=== PATIENT | female | born 1975 | race Caucasian/White ===

== ENCOUNTER 2017-11-08 11:11 | Outpatient (CLI) | payer BC | END 2017-11-08 11:12 | disposition home or self-care (01) | LOC: BICMAMMO 11:11 | PROVIDERS: ATTEND Obstetrics & Gynecology | DX: Z12.31 Encounter for screening mammogram for malignant neoplasm of breast (principal); Z80.3 Family history of malignant neoplasm of breast | CPT/HCPCS: 77063; 77067 ==

== ENCOUNTER 2018-02-28 07:42 | Outpatient (CLI) | payer BC ==
--- NOTE | 2018-02-28 09:48 | CT ---
CT OF THE ABDOMEN AND PELVIS WITH AND WITHOUT IV CONTRAST: INDICATION: History of microhematuria and left-sided flank pain with postsurgical change of prior exploratory lap arotomy x 5 and cholecystectomy. COMPARISON: None. FINDINGS: The lung bases are clear. The gallbladder is surgically absent. No focal hepatic lesion is demonstrated. The spleen, pancreas , and adrenal glands are normal-appearing. There are small hypodensities involving the kidneys consi stent with tiny subcentimeter cysts. No solid renal lesion is evident. No gross enhancing or obstru cting urothelial lesion is demonstrated. There is a tiny nonobstructing calculus within the right mi d kidney measuring 2 mm. No left-sided renal calculus is evident. No ureteral calculus is demonstra yvrose. No bladder stone is present. No pathologically enlarged lymph nodes are evident. No free fluid is demonstrated. There is a normal retrocecal appendix. There is a lobulated contour to the right margin of the uterine body with a nodular bulge seen on fernanda ge 76 of series 3 measuring 2.2 cm most consistent with a fundal fibroid. No free fluid is evident. There is a mild amount of retained stool within the colon. No pathologically enlarged lymph nodes a re evident within the pelvis. There is a small bone island within the left pubic body. No suspiciou s osteolytic or osteoblastic lesion is identified. IMPRESSION: 1. Bilateral renal cysts. 2. Right nephrolithiasis. 3. No gross urothelial lesion demonstrated. 4. Cholecystectomy. 5. Fibroid uterus. 6. Other findings as above. POS: [facility]
== END 2018-02-28 07:43 | disposition home or self-care (01) ==
LOC: CT 07:42
PROVIDERS: ATTEND Family Medicine
DX: R31.9 Hematuria, unspecified (principal); R10.9 Unspecified abdominal pain; N28.1 Cyst of kidney, acquired; N20.0 Calculus of kidney; D25.9 Leiomyoma of uterus, unspecified; R19.5 Other fecal abnormalities; Z90.49 Acquired absence of other specified parts of digestive tract
CPT/HCPCS: 74178

== ENCOUNTER 2018-03-12 07:23 | Outpatient (CLI) | payer BC ==
--- NOTE | 2018-03-12 10:02 | ULT ---
BILATERAL RENAL ULTRASOUND WITH DOPPLER COLORFLOW: CLINICAL HISTORY: Chronic renal disease. Renal cysts. COMPARISON: Reference made to CT exam from 02/28/2018. FINDINGS: No overt hydronephrosis is seen involving the kidneys. Within the right mid kidney, there is a circu mscribed focus of decreased echogenicity, which measures approximately 1 cm, corresponding to a small hypodensity on preceding CT, indicative of a cyst. Punctate hypodensity of the left kidney on a rec ent CT is not well discerned, sonographically. The urinary bladder is decompressed, thus limiting ev aluation. IMPRESSION: 1. Small right renal cyst. 2. Small hypodensity of left kidney on preceding CT is not well discerned, sonographically, likely d ue to very small size. POS: [facility]
== END 2018-03-12 07:24 | disposition home or self-care (01) ==
LOC: BICULT 07:23
PROVIDERS: ATTEND Internal Medicine Nephrology
DX: N18.1 Chronic kidney disease, stage 1 (principal); Q61.9 Cystic kidney disease, unspecified; R93.422 Abnormal radiologic findings on diagnostic imaging of left kidney
CPT/HCPCS: 76770

== ENCOUNTER 2018-12-12 10:17 | Outpatient (CLI) | payer BC ==
--- NOTE | 2018-12-12 12:28 | MMO ---
Bilateral MAMMO Bilat Screen [facility]. CLINICAL HISTORY: Patient is 43 years old and is seen for screening. The patient has the following family history of breast cancer: mother, at age 63, malignant (generic). The patient has no personal history of cancer. VIEWS: The views performed were: bilateral craniocaudal with tomosynthesis; bilateral mediolateral oblique with tomosynthesis; and right mediolateral oblique. FILMS COMPARED: The present examination has been compared to a prior imaging study performed at [facility] on 11/08/2017. MAMMOGRAM FINDINGS: There are scattered fibroglandular densities. There is a new area of architectural distortion seen in the posterior region of the left breast at 3 o'clock. In the right breast, there are no suspicious masses, calcifications or areas of architectural distortion. IMPRESSION: NEW AREA OF ARCHITECTURAL DISTORTION IN THE LEFT BREAST REQUIRES ADDITIONAL EVALUATION. AN ULTRASOUND EXAM IS RECOMMENDED IF NEEDED. ADDITIONAL IMAGING. THE RESULTS OF THIS EXAM WERE SENT TO THE PATIENT. ACR BI-RADS Category 0 - Incomplete: Need additional imaging evaluation. [facility] will notify the patient of the need for additional imaging services. MAMMOGRAPHY NOTE: 1. A negative mammogram report should not delay a biopsy if a dominant of clinically suspicious mass is present. 2. Approximately 10% to 15% of breast cancers are not detected by mammography. 3. Adenosis and dense breasts may obscure an underlying neoplasm. Reported by: BRODY COLLIER MD Electonically Signed: [id number]
== END 2018-12-12 10:18 | disposition home or self-care (01) ==
LOC: BICMAMMO 10:17
PROVIDERS: ATTEND Obstetrics & Gynecology
DX: Z12.31 Encounter for screening mammogram for malignant neoplasm of breast (principal); Z80.3 Family history of malignant neoplasm of breast; Q83.9 Congenital malformation of breast, unspecified
CPT/HCPCS: 77063; 77067

== ENCOUNTER 2018-12-18 08:53 | Outpatient (CLI) | payer BC ==
--- NOTE | 2018-12-18 09:20 | MMO ---
Left Breast MAMMO Unilat Diag [facility]. CLINICAL HISTORY: Patient is 43 years old and is seen for additional evaluation requested from prior study. The patient has the following family history of breast cancer: mother, at age 63, malignant (generic). The patient has no personal history of cancer. VIEWS: The views performed were: left craniocaudal spot compression with tomosynthesis; left mediolateral oblique spot compression with tomosynthesis; and left mediolateral with tomosynthesis. FILMS COMPARED: The present examination has been compared to prior imaging studies performed at [facility] on 11/08/2017 and 12/12/2018. MAMMOGRAM FINDINGS: There are scattered fibroglandular densities. The asymmetry seen at screening mammography does not persist at additional imaging, compatible with superimposed tissue. There are no suspicious masses, suspicious calcifications, or new areas of architectural distortion. IMPRESSION: THERE IS NO MAMMOGRAPHIC EVIDENCE OF MALIGNANCY. A ROUTINE FOLLOW-UP MAMMOGRAM IN 1 YEAR IS RECOMMENDED. THE RESULTS OF THIS EXAM WERE SENT TO THE PATIENT. ACR BI-RADS Category 2 - Benign finding MAMMOGRAPHY NOTE: 1. A negative mammogram report should not delay a biopsy if a dominant of clinically suspicious mass is present. 2. Approximately 10% to 15% of breast cancers are not detected by mammography. 3. Adenosis and dense breasts may obscure an underlying neoplasm. Reported by: TULIO DESOUZA MD Electonically Signed: [id number]
== END 2018-12-18 08:54 | disposition home or self-care (01) ==
LOC: BICMAMMO 08:53
PROVIDERS: ATTEND Obstetrics & Gynecology
DX: N64.89 Other specified disorders of breast (principal); Z80.3 Family history of malignant neoplasm of breast
CPT/HCPCS: G0279